=== PATIENT | male | born 1945 | race Caucasian/White ===

== ENCOUNTER 2017-03-23 10:23 | Inpatient (IN) | payer OTHER ==
[~2017-03-23] VITALS: Ht 177.8 cm; Wt 83.5 kg
[2017-03-23 11:08] LABS: EOSINOPHIL (%) 1.7 % (0-5); EOSINOPHIL COUNT 0.1 K/uL (0-0.3); HEMATOCRIT 48.5 % (38.0-50.0); IMMATURE GRANULOCYTE (%) 0.4 % (0.0-0.7); INSTRUMENT ABS NEUTROPHIL CT 5.6 K/uL; LYMPHOCYTE COUNT 1.2 K/uL (1.0-2.8); MCH 27.8 PG (29.0-34.0); MCHC 33.6 G/DL (30.0-36.0); MCV 82.8 FL (86-99); MEAN PLAT.VOLUME 8.9 uM^3 (9.0-12.4); MONOCYTE (%) 8.1 % (3-12); MONOCYTE COUNT 0.6 K/uL (0-0.8); NEUTROPHIL COUNT 5.6 K/uL (1.8-6.4); PLATELET COUNT 230 K/uL (156-360); RBC DIS.WIDTH-CV 13.1 % (11.8-14.6); RBC DIS.WIDTH-SD 39.2 % (39-53); RED BLOOD COUNT 5.86 M/uL (4.00-5.50); WHITE BLOOD COUNT 7.6 K/uL (4.1-10.2)
[2017-03-23 11:15] LABS: INTER. NORMALIZED RATIO 1.1; PROTHROMBIN TIME 12.5 SEC (10.2-12.9)
[2017-03-23 11:16] LABS: CHLORIDE 105 mEq/L (99-109); POTASSIUM 4.5 mEq/L (3.7-5.4); SODIUM 143 mEq/L (136-147)
[2017-03-23 11:17] LABS: PTT 34.8 SEC (25-37)
[2017-03-23 11:18] LABS: GLUCOSE 100 mg/dL (70-99)
[2017-03-23 11:20] LABS: ANION GAP 10 MEQ/L (2-14)
[2017-03-23 11:22] LABS: GFR ESTIMATE (CALCULATED) > 59 mL/min/
[2017-03-23 11:23] LABS: UREA NITROGEN (BUN) 8 mg/dL (9-23)
[2017-03-23 11:28] LABS: TROP-I INTERPRETATION NEGATIVE; TROPONIN-I < 0.01 ng/mL (0.0-0.30)
[2017-03-23] MEDS ORDERED: PRIMATENE MIST IH (13:28)
[2017-03-23 17:00] VITALS: BP 133/89
[2017-03-23 17:01] LABS: TROP-I INTERPRETATION NEGATIVE; TROPONIN-I < 0.01 ng/mL (0.0-0.30)
[2017-03-23 19:37] VITALS: BP 157/103
[2017-03-24 02:56] VITALS: BP 166/94
[2017-03-24 06:59] VITALS: BP 146/96
[2017-03-24 07:12] LABS: HEMATOCRIT 46.9 % (38.0-50.0); MCH 27.1 PG (29.0-34.0); MCHC 32.6 G/DL (30.0-36.0); MEAN PLAT.VOLUME 9.1 uM^3 (9.0-12.4); PLATELET COUNT 238 K/uL (156-360); RBC DIS.WIDTH-CV 13.2 % (11.8-14.6); RBC DIS.WIDTH-SD 40.1 % (39-53); RED BLOOD COUNT 5.65 M/uL (4.00-5.50); WHITE BLOOD COUNT 7.1 K/uL (4.1-10.2)
[2017-03-24 08:27] LABS: HDL CHOLESTEROL 31 MG/DL (Desirable>=40); LDL CHOLESTEROL 137 mg/dL (Desirable<100); NON-HDL CHOLESTEROL 153 mg/dL (Desirable<160); TOTAL CHOLESTEROL 184 mg/dL (Desirable<200); TRIGLYCERIDES 78 MG/DL (Normal: <150)
[2017-03-24 09:00] VITALS: BP 142/89
[2017-03-24 11:04] LABS: ALKALINE PHOSPHATASE 82 IU/L (3-129); DIRECT BILIRUBIN 0.2 mg/dL (0.0-0.3); TOTAL BILIRUBIN 1.2 MG/DL (0.0-1.0)
[2017-03-24 12:18] VITALS: BP 137/95
[2017-03-24 16:03] VITALS: BP 129/87
[2017-03-24 19:50] VITALS: BP 153/87
[2017-03-25 00:05] VITALS: BP 116/69
[2017-03-25 02:54] VITALS: BP 126/71
[2017-03-25 07:18] LABS: Estimated Average Glucose 108 mg/dL (70-123); HEMOGLOBIN A1c (GLYCOHEMOGLOB) 5.4 % HGB (Below 5.7)
[2017-03-25 07:48] VITALS: BP 129/75
[2017-03-25] MEDS ORDERED: AZITHROMYCIN500 M1 PO (08:14)
[2017-03-25] MEDS ORDERED: ELIQUIS5 MG PO (08:14)
[2017-03-25] MEDS ORDERED: LOPRESSOR25 MG PO (08:15)
[2017-03-25] MEDS ORDERED: VENTOLIN HFA18 GM IH (08:15)
[2017-03-25] MEDS ORDERED: ATORVASTATIN CA40 MG PO (08:15)
[2017-03-25] MEDS ORDERED: ASPIR-LOW81 MG PO (08:15)
== END 2017-03-25 12:14 | disposition home or self-care (01) | DRG 310 ==
LOC: EME 10:23 → EDOF 12:37 → ENRESERV 12:46 → EDOF 12:46 → ENRESERV 14:33 → 4EAST 16:12 → ENPENDDIS 03-25 → 4EAST 03-25 12:14
PROVIDERS: Emergency Medicine; Internal Medicine
DX: I48.91 Unspecified atrial fibrillation (principal); J40 Bronchitis, not specified as acute or chronic; J44.9 Chronic obstructive pulmonary disease, unspecified; I70.90 Unspecified atherosclerosis; I10 Essential (primary) hypertension; E78.1 Pure hyperglyceridemia; R00.0 Tachycardia, unspecified; Z91.19 Patient's noncompliance with other medical treatment and regimen; E66.3 Overweight; Z68.26 Body mass index [BMI] 26.0-26.9, adult; Z80.3 Family history of malignant neoplasm of breast; Z87.891 Personal history of nicotine dependence
CPT/HCPCS: 71010; 71275; 80048; 80061; 80076; 83036; 83880; 84443; 84484; 85025; 85027; 85379; 85610; 85730; 93005; 93306; 99202; 99281; 99284; J1650

== ENCOUNTER 2017-04-22 07:59 | Day surgery (SDC) | payer OTHER ==
[~2017-04-22] VITALS: Ht 177.8 cm; Wt 85.3 kg
[~2017-04-22 07:59] MED LIST: ASPIR-LOW81 MG PO; ATORVASTATIN CA40 MG PO; AZITHROMYCIN500 M1 PO; ELIQUIS5 MG PO; LOPRESSOR25 MG PO; PRIMATENE MIST IH; SPIRIVA1 INHALATI IH; VENTOLIN HFA18 GM IH
== END 2017-04-22 16:53 | disposition short-term general hospital (02) ==
LOC: CATH 07:59
DX: I25.10 Atherosclerotic heart disease of native coronary artery without angina pectoris (principal); I25.82 Chronic total occlusion of coronary artery; I48.91 Unspecified atrial fibrillation; I10 Essential (primary) hypertension; E78.5 Hyperlipidemia, unspecified; Z88.0 Allergy status to penicillin; Z79.01 Long term (current) use of anticoagulants
CPT/HCPCS: C1769; C1887; J1644; J2250; J3010

== ENCOUNTER 2017-06-21 08:57 | Day surgery (SDC) | payer OTHER ==
[~2017-06-21] VITALS: Ht 177.8 cm; Wt 81.7 kg
[~2017-06-21 08:57] MED LIST changes: +AMIODARONE HCL200 MG PO; +LASIX20 MG PO
== END 2017-06-21 11:50 | disposition home or self-care (01) ==
LOC: CATH 08:57
PROC: 5A2204Z Restoration of Cardiac Rhythm, Single (ICD-10-PCS; principal; 2017-06-21)
DX: I48.91 Unspecified atrial fibrillation (principal); Z95.1 Presence of aortocoronary bypass graft; I50.9 Heart failure, unspecified; J44.9 Chronic obstructive pulmonary disease, unspecified; Z79.82 Long term (current) use of aspirin
CPT/HCPCS: 93005